=== PATIENT | female | born 1970 | race Caucasian/White ===

== ENCOUNTER 2021-06-19 21:28 | Emergency (ER) | payer OTHER, SELFPAY ==
[~2021-06-19] VITALS: Ht 157.5 cm; Wt 77.1 kg
[~2021-06-19 21:28] MED LIST: FURO20TA3 PO; METF500T PO; METO-237 PO; POTA10CA PO; RISP0.5T62 PO
[2021-06-19 22:18] VITALS: BP 145/97
--- NOTE | 2021-06-19 22:22 | ER.PDOC ---
General Chief Complaint: Toothache Stated Complaint: TOOTHACHE Time seen by MD: 22:22 Source: patient Exam Limitations: no limitations History of Present Illness Initial Comments This 50-year-old white female comes in with complaint of severe right Tooth #30 has been painful for now for the last 10 days to 2 weeks. Patient stated that they actually looked up on YouTube how to pull a tooth and attempted to pull his at home. She stated that was none unable to get it completely out so she comes in here with this persistent pain. She has no other acute complaints or problems. Timing/Duration: gradual Associated Symptoms: jaw pain (R) Severity: moderate Worsen By: nothing Prior symptoms/Treatment: Similar symptoms previous Allergies: Coded Allergies: No Known Allergies (Unverified , 11/12/17) Home Meds Active Scripts Potassium Chloride (POTASSIUM CHLORIDE) 10 Meq Capsule.er, 10 MEQ PO BID for 30 Days, #60 TAB Prov:YAHAIRA OLVERA MD 06/29/20 Metformin Hcl (GLUCOPHAGE) 500 Mg Tablet, 500 MG PO BID for 30 Days, #60 TAB Prov:YAHAIRA OLVERA MD 06/29/20 Metoprolol Succinate (METOPROLOL SUCCINATE) 50 Mg Tab.er.24h, 1 TAB PO DAILY, #30 TAB 5 Refills Prov:YAHAIRA OLVERA MD 06/29/20 Risperidone (RISPERIDONE) 0.5 Mg Tablet, 1 TAB PO BID, #60 TAB 1 Refill Prov:YAHAIRA OLVERA MD 06/29/20 Furosemide (FUROSEMIDE) 20 Mg Tablet, 20 MG PO BID, #60 TAB Prov:YAHAIRA OLVERA MD 06/29/20 Past Medical History Medical History: congestive heart failure, diabetes Surgical History: cholecystectomy, Social History Drug Use: none Mouth: loose teeth, pain All Other Systems: Reviewed and Negative Physical Exam General Appearance: alert, no distress Head/Neck: head nml inspection, neck nml inspection, trachea midline, no lymph adenopathy, thyroid nml Eyes: eyes nml inspection, PERRL, no nystagmus Mouth: widespread dental decay (Okay this tooth has a very large cavity in it is its barely hanging on by a little bit of the skin on the lateral aspect. She stated that they had tried to pull it at home and was unsuccessful.) Throat: pharynx nml, voice nml, no airway problems Ears/Nose: nml inspection Respiratory: no resp. distress, lungs clear CVS: reg. rate & rhythm, heart sounds nml Abdomen: non-tender, no organomegaly Extremities: non-tender, ROM nml Skin Exam: Normal Color, Warm/Dry NEURO/PSYCH: oriented X3, mood/effect nml Results/Orders Results/Orders Orders - ALMITA VILLA MD Bupivacaine Liposome/Pf (Exparel 133 Mg/ (06/19/21 22:30) Vital Signs Date Time Temp Pulse Resp B/P (MAP) Pulse Ox O2 Delivery O2 Flow Rate FiO2 06/19/21 22:18 98.6 102 16 145/97 (113) 95 Room Air 06/19/21 22:18 98.6 102 16 06/19/21 22:18 98.6 102 16 95 Progress Progress A mandibular block was placed with 0.5% bupivacaine. Then I examined the tooth and it was 99% outside this man had remove it the rest of the way. Patient is being discharged home with instructions to follow-up with her PCP and get her routine medications refilled. ER DEPART Departure Time of Disposition: 22:42 Disposition: 01 HOME / SELF CARE / HOMELESS Impression: Primary Impression: Abscess of mandible Additional Impression: Toothache Condition: Stable Referrals: PCP,UNKNOWN (PCP) PRIMARY CARE PROVIDER Duration or Time Spent with Pa: 15m ALMITA VILLA MD Jun 19, 2021 22:22
[2021-06-19] MEDS ORDERED: EXPAREL 133 MG/10 ML VIAL IJ ONE (22:30)
== END 2021-06-19 22:45 | disposition home or self-care (01) ==
LOC: ER 21:28
DX: M27.2 Inflammatory conditions of jaws (principal); K08.89 Other specified disorders of teeth and supporting structures; I50.9 Heart failure, unspecified; E11.9 Type 2 diabetes mellitus without complications; Z79.84 Long term (current) use of oral hypoglycemic drugs; Z79.899 Other long term (current) drug therapy; Z90.49 Acquired absence of other specified parts of digestive tract
CPT/HCPCS: 64400; 99284